=== PATIENT | male | born 1960 | race Caucasian/White ===

== ENCOUNTER → 2022-02-13 07:23 | Outpatient (CLI) | payer OTHER, SELFPAY ==
[2022-02-13 08:57] LABS: Add Manual Diff / Slide Review NO; Basophils Absolute Auto 0 /uL (0-100); Basophils Percent Auto 0.5 % (0-2); Eosinophils Absolute Auto 200 /uL (0-450); Eosinophils Percent Auto 2.9 % (2-4); Hematocrit 40.3 % (41-53); Hemoglobin 13.9 g/dL (13.5-17.5); Lymphocytes Absolute Auto 1200 /uL (1100-4500); Lymphocytes Percent Auto 14.5 % (25-40); Mean Corpuscular HGB Conc 34.5 % (30-36); Mean Corpuscular Hemoglobin 30.5 PG (26-34); Mean Corpuscular Volume 88.4 fL (80-100); Monocytes Absolute Auto 700 /uL (0-900); Monocytes Percent Auto 8.7 % (3-14); Neutrophils Absolute Auto 6300 /uL (1500-7000); Neutrophils Percent Auto 73.4 % (50-75); Platelet Count 200 X10^3/uL (150-400); Red Blood Cell Count 4.56 X10^6/uL (4.5-5.9); Red Cell Distribution Width 13.5 % (11.6-14.8); White Blood Cell Count 8.6 X10^3/uL (4.5-11.0)
[2022-02-13 09:07] LABS: Alanine Aminotransferase 42 IU/L (<50); Albumin 4.2 g/dL (3.5-5.0); Albumin Globulin Ratio 1.4 (1.0-2.8); Alkaline Phosphatase 68 U/L (38-126); Aspartate Aminotransferase 35 IU/L (17-59); BUN Creatinine Ratio 22.8 (6-22); Bilirubin Total 0.6 mg/dL (0.2-1.3); Blood Urea Nitrogen 23 mg/dL (9-20); Calcium 9.3 mg/dL (8.4-10.2); Carbon Dioxide 27 mmol/L (22-32); Chloride 103 mmol/L (98-107); Cholesterol 133 mg/dL (140-199); Estimated Glomerular Filt Rate > 60 mL/min (>60); Glucose 100 mg/dL (80-110); HDL Cholesterol 50 mg/dL (40-60); HEMOLYSIS < 15 (0-50); LDL Cholesterol Calculated 66 mg/dL (<100); Potassium 4.3 mmol/L (3.4-5.1); Sodium 138 mmol/L (137-145); Total Protein 7.2 g/dL (6.3-8.2); Triglycerides 83 mg/dL (35-150)
[2022-02-13 09:38] LABS: Prostate Specific Antigen 1.74 ng/mL (0.10-4.00)
== END ==
PROVIDERS: PCP Family Medicine; Referring Provider Family Medicine; Visit Provider Family Medicine
DX: E78.5 Hyperlipidemia, unspecified (principal); I10 Essential (primary) hypertension
CPT/HCPCS: 36415; 80053; 80061; 84153; 85025

== ENCOUNTER → 2022-03-22 09:21 | Outpatient (CLI) | payer OTHER, SELFPAY ==
[2022-03-22 12:09] LABS: COVID19 -Nasal RAPID Negative (Negative)
== END ==
PROVIDERS: PCP Family Medicine; Visit Provider Surgery
DX: Z01.812 Encounter for preprocedural laboratory examination (principal); Z20.822 Contact with and (suspected) exposure to COVID-19
CPT/HCPCS: 87635; C9803

== ENCOUNTER 2022-03-23 08:59 | Day surgery (SDC) | payer OTHER, SELFPAY ==
--- NOTE | 2022-03-23 | PATH_ITS ---
[facility] Accession Number: [id number] . 01 Material submitted: . colon - DESCENDING COLON POLYP . 01 Clinical history: . DX COLONOSCOPY HEMORRHAGE OF ANUS AND RECTUM . 01 Diagnosis: Descending Colon Polyp, Biopsy: Hyperplastic polyp. MRV 03/28/2022 1111 Local . 01 Electronically signed: . Nataliya Noriega MD, Pathologist NPI- [id number] . 01 Gross description: . DESCENDING COLON POLYP: Received in formalin are 2 fragment(s) of henry, soft tissue measuring 0.8 x 0.2 x 0.2 cm to 0.5 x 0.2 x 0.2 cm submitted entirely in 1 cassette(s) /CPE 03/25/2022 1006 Local . 01 Pathologist provided ICD-10: D12.4 . 01 CPT . 747001 Performed at: 01 [facility] [address] [place] [address] [address], [place], [place] [id number] MD Jameson Chester MD Phone: [phone]
[2022-03-23 09:20] VITALS: BP 123/79; PULSE 72; RESP 18; TEMP 36.3; O2SAT 99; BMI 34.8
[2022-03-23] MEDS: LACTATED RINGERS 1,000 ML 42 ML IV (09:33)
--- NOTE | 2022-03-23 09:57 | PM.HP.1 ---
History of Present Illness History of Present Illness Date Patient Seen: 03/23/22 Time Patient Seen: 09:57 Chief complaint: DX COLONOSCOPY Narrative: Pedro Luis is here for his colonoscopy. Please see office note from January for details. He reports he is still having occasional rectal bleeding and sometimes he has seepage of mucus from area. Patient History Medical History (Updated 02/23/22 @ 12:04 by Prakash Lundberg DO) Anemia (~2017) Chicken pox (~1966) Chronic pain of left knee Colon polyps (~2015) Foot pain (~1999) GERD (gastroesophageal reflux disease) (~2005) GI bleeding (~2018) Hemorrhoid (~2018) Hepatitis A (~1977) HTN (hypertension) (~2009) Hyperlipidemia Internal hemorrhoid, bleeding Measles (~1964) Shoulder pain (~2015) Sleep apnea (~2009) Surgical History (Updated 02/22/22 @ 21:37 by Luisa Hook) Anesthesia History of foot surgery (~1999) History of sinus surgery (~2004) Family & Social History Family History (Updated 02/22/22 @ 21:38 by Luisa Hook) Father Accident Mother Hypertension Grandfather Pneumonia Social History: household members spouse Tobacco & Substance use: Smoking Status Never smoker alcohol intake current alcohol intake frequency 0-2 drinks per day Substance Use Type does not use Meds Home Medications and Allergies Home Medications Medication Instructions Recorded Confirmed Type lisinopril 20 1 tab PO BID 12/28/21 03/23/22 History mg-hydrochlorothiazide 12.5 mg tablet omeprazole 20 mg capsule,delayed 20 mg PO DAILY 12/28/21 03/23/22 History release rosuvastatin 10 mg tablet 10 mg PO DAILY 12/28/21 03/23/22 History amlodipine 10 mg tablet 10 mg PO DAILY #90 tabs 02/23/22 03/23/22 Rx Allergies Allergy/AdvReac Type Severity Reaction Status Date / Time No Known Drug Allergies Allergy Verified 03/23/22 09:11 Exam Vital Signs (past 8 hours): - 03/23/22 09:20 Temperature 97.4 F L Pulse Rate 72 Respiratory Rate 18 Blood Pressure 123/79 Pulse Oximetry 99 Oxygen Delivery Method Room Air Oxygen Flow Rate 0 Oxygen Delivery Method Room Air Oxygen Flow Rate 0 Const General: No acute distress Assessment & Plan Assessment and plan (1) Hematochezia: Status: Acute Plan We will plan for colonoscopy. We will pay extra attention to the anal area but if no source of his symptoms were found we would be able to proceed with exam under anesthesia at a later date. Time Spent With Patient Critical Care time: I spent a total of [] minutes of critical care time on this patient's care today; this time is exclusive of procedural time.
[2022-03-23] MEDS: MIDAZOLAM 5 MG/5 ML VIAL 4 MG IV (11:04)
[2022-03-23] MEDS: fentaNYL 100 MCG/2 ML INJ 125 MCG IV (11:04)
--- NOTE | 2022-03-23 11:21 | PM.OP.COLON ---
Operative Date/Time/Diagnoses Date of procedure: 03/23/22 Time of procedure: 11:21 Pre-op diagnosis: Rectal bleeding Post-op diagnosis: same Procedure & Clinicians Study performed: Colonoscopy Same procedure as scheduled: Yes Surgeon: Linus Gonzalez Procedure Notes Procedure in detail: Surgeon: Linus Gonzalez MD Procedure: The patient was brought to the endoscopy suite, placed in left lateral decubitus position. The patient was connected to monitoring devices. A time-out was performed. Sedation was administered. Once the patient was adequately sedated, a digital rectal exam was performed and was normal. The scope was then inserted and advanced to the cecum where the appendiceal orifice was identified and photographed. The scope was then slowly withdrawn over greater than 6 minutes. The mucosa was thoroughly inspected. There was a 5 mm polyp in the descending colon removed with a cold snare. The scope was retroflexed in the rectum. There were some internal hemorrhoids. The scope was straightened and removed. The patient was awakened and brought to recovery. Versed: 4 mg Fentanyl: 125 mcg EBL: 5 mL Findings: 5 mm descending colon polyp Scope withdrawal time: 9 Sedation minutes: 15 Post-procedure Recommendations: Will call with biopsy results Disposition: PACU
[2022-03-23 11:25] VITALS: BP 146/80; PULSE 65; RESP 16; TEMP 36.3; O2SAT 96
[2022-03-23 11:30] VITALS: BP 147/90; PULSE 69; RESP 16; O2SAT 96
[2022-03-23 11:35] VITALS: BP 126/87; PULSE 59; RESP 12; O2SAT 97
[2022-03-23 11:52] VITALS: BP 138/85; PULSE 70; RESP 16; TEMP 36.8; O2SAT 99
== END 2022-03-23 12:05 | disposition home or self-care (01) ==
PROVIDERS: PCP Family Medicine; Referring Provider Surgery; Visit Provider Surgery
PROC: 0DJD8ZZ Inspection of Lower Intestinal Tract, Via Natural or Artificial Opening Endoscopic (ICD-10-PCS; CPT 45378; principal; 2022-03-23 10:00)
DX: K62.5 Hemorrhage of anus and rectum (principal); K64.8 Other hemorrhoids; K63.5 Polyp of colon
CPT/HCPCS: 45385; 99152; J2250; J3010

== ENCOUNTER → 2022-06-30 11:26 | Outpatient (CLI) | payer OTHER, SELFPAY ==
[2022-06-30 12:11] LABS: Hematocrit 40.2 % (41-53); Hemoglobin 13.7 g/dL (13.5-17.5); Mean Corpuscular HGB Conc 34.1 % (30-36); Mean Corpuscular Hemoglobin 30.3 PG (26-34); Mean Corpuscular Volume 88.9 fL (80-100); Platelet Count 230 X10^3/uL (150-400); Red Blood Cell Count 4.52 X10^6/uL (4.5-5.9); Red Cell Distribution Width 13.8 % (11.6-14.8); White Blood Cell Count 6.1 X10^3/uL (4.5-11.0)
== END ==
PROVIDERS: PCP Family Medicine; Referring Provider Family Medicine; Visit Provider Family Medicine
DX: D64.9 Anemia, unspecified (principal); K64.8 Other hemorrhoids
CPT/HCPCS: 36415; 85027

== ENCOUNTER → 2023-03-27 07:12 | Outpatient (CLI) | payer OTHER, SELFPAY ==
[2023-03-27 07:47] LABS: Add Manual Diff / Slide Review NO; Basophils Absolute Auto 0 /uL (0-100); Basophils Percent Auto 0.6 % (0-2); Eosinophils Absolute Auto 200 /uL (0-450); Eosinophils Percent Auto 2.9 % (2-4); Hematocrit 36.4 % (41-53); Hemoglobin 12.5 g/dL (13.5-17.5); Lymphocytes Absolute Auto 1200 /uL (1100-4500); Lymphocytes Percent Auto 14.8 % (25-40); Mean Corpuscular HGB Conc 34.3 % (30-36); Mean Corpuscular Hemoglobin 29.8 PG (26-34); Monocytes Absolute Auto 900 /uL (0-900); Monocytes Percent Auto 10.9 % (3-14); Neutrophils Absolute Auto 5600 /uL (1500-7000); Neutrophils Percent Auto 70.8 % (50-75); Platelet Count 225 X10^3/uL (150-400); Red Blood Cell Count 4.19 X10^6/uL (4.5-5.9); Red Cell Distribution Width 14.7 % (11.6-14.8); White Blood Cell Count 7.9 X10^3/uL (4.5-11.0)
[2023-03-27 08:05] LABS: Alanine Aminotransferase 33 IU/L (<50); Albumin 4.1 g/dL (3.5-5.0); Albumin Globulin Ratio 1.5 (1.0-2.8); Alkaline Phosphatase 74 U/L (38-126); Aspartate Aminotransferase 42 IU/L (17-59); BUN Creatinine Ratio 33.8 (6-22); Bilirubin Total 0.8 mg/dL (0.2-1.3); Blood Urea Nitrogen 26 mg/dL (9-20); Calcium 9.7 mg/dL (8.4-10.2); Carbon Dioxide 24 mmol/L (22-32); Chloride 103 mmol/L (98-107); Cholesterol 140 mg/dL (140-199); Estimated Glomerular Filt Rate > 60 mL/min (>60); Globulin 2.8 g/dL (1.7-4.1); Glucose 103 mg/dL (80-110); HDL Cholesterol 61 mg/dL (40-60); HEMOLYSIS < 15 (0-50); LDL Cholesterol Calculated 58 mg/dL (<100); Potassium 3.7 mmol/L (3.4-5.1); Sodium 138 mmol/L (137-145); Total Protein 6.9 g/dL (6.3-8.2); Triglycerides 106 mg/dL (35-150)
[2023-03-27 08:33] LABS: Prostate Specific Antigen Scrn 2.01 ng/mL (0.1-4.0)
[2023-03-27 09:07] LABS: Creatinine Urine Random 194.2 mg/dL
[2023-03-27 09:12] LABS: Microalbumi Creatinin Ratio Ur 4.6 ug/mg CR (<30); Microalbumin Urine Random 0.9 mg/dL (0-1.6)
== END ==
PROVIDERS: PCP Family Medicine; Referring Provider Family Medicine; Visit Provider Family Medicine
DX: E78.2 Mixed hyperlipidemia (principal); I10 Essential (primary) hypertension; Z13.9 Encounter for screening, unspecified; Z12.5 Encounter for screening for malignant neoplasm of prostate
CPT/HCPCS: 36415; 80053; 80061; 82043; 82570; 85025; G0103

== ENCOUNTER 2023-04-10 19:08 | Emergency (ER) | payer OTHER, SELFPAY ==
[2023-04-10 19:19] VITALS: BP 134/68; PULSE 95; RESP 22; TEMP 37.6; O2SAT 97; BMI 34.8
[2023-04-10 20:15] LABS: Influenza A - CEPHEID Flu A NEGATIVE (NEGATIVE); Influenza B - CEPHEID Flu B NEGATIVE (NEGATIVE); Respiratory Syncytial Virus Negative (Negative)
[2023-04-10 20:16] LABS: COVID-19 CEPHEID 4-PLEX PCR Negative (Negative)
== END 2023-04-10 20:15 | disposition left against medical advice (07) ==
PROVIDERS: Emergency Provider Emergency Medicine; PCP Family Medicine
DX: R05.9 Cough, unspecified (principal)
CPT/HCPCS: 0241U; 99281

== ENCOUNTER → 2024-04-07 07:21 | Outpatient (CLI) | payer OTHER, SELFPAY ==
[2024-04-07 09:19] LABS: Add Manual Diff / Slide Review NO; Basophils Absolute Auto 0 /uL (0-100); Basophils Percent Auto 0.7 % (0-2); Eosinophils Absolute Auto 200 /uL (0-450); Eosinophils Percent Auto 5.2 % (2-4); Hematocrit 39.9 % (41-53); Hemoglobin 13.6 g/dL (13.5-17.5); Lymphocytes Absolute Auto 1100 /uL (1100-4500); Lymphocytes Percent Auto 27.2 % (25-40); Mean Corpuscular HGB Conc 34.1 % (30-36); Mean Corpuscular Hemoglobin 30.5 PG (26-34); Mean Corpuscular Volume 89.5 fL (80-100); Monocytes Absolute Auto 500 /uL (0-900); Monocytes Percent Auto 11.6 % (3-14); Neutrophils Absolute Auto 2300 /uL (1500-7000); Neutrophils Percent Auto 55.3 % (50-75); Platelet Count 198 X10^3/uL (150-400); Red Blood Cell Count 4.46 X10^6/uL (4.5-5.9); Red Cell Distribution Width 13.6 % (11.6-14.8); White Blood Cell Count 4.1 X10^3/uL (4.5-11.0)
[2024-04-07 09:52] LABS: Alanine Aminotransferase 30 IU/L (<50); Albumin 4.3 g/dL (3.5-5.0); Albumin Globulin Ratio 1.7 (1.0-2.8); Alkaline Phosphatase 57 U/L (38-126); Aspartate Aminotransferase 31 IU/L (17-59); BUN Creatinine Ratio 22.4 (6-22); Bilirubin Total 0.5 mg/dL (0.2-1.3); Blood Urea Nitrogen 19 mg/dL (9-20); Calcium 9.8 mg/dL (8.4-10.2); Carbon Dioxide 28 mmol/L (22-32); Chloride 104 mmol/L (98-107); Cholesterol 128 mg/dL (140-199); Estimated Glomerular Filt Rate > 60 mL/min (>60); Globulin 2.6 g/dL (1.7-4.1); Glucose 98 mg/dL (80-110); HDL Cholesterol 65 mg/dL (40-60); HEMOLYSIS < 15 (0-50); LDL Cholesterol Calculated 46 mg/dL (<100); Potassium 4.5 mmol/L (3.4-5.1); Sodium 140 mmol/L (137-145); Total Protein 6.9 g/dL (6.3-8.2); Triglycerides 85 mg/dL (35-150)
[2024-04-07 10:16] LABS: Prostate Specific Antigen Scrn 2.02 ng/mL (0.1-4.0)
== END ==
PROVIDERS: PCP Family Medicine; Referring Provider Family Medicine; Visit Provider Family Medicine
DX: D64.9 Anemia, unspecified (principal); I10 Essential (primary) hypertension; E78.5 Hyperlipidemia, unspecified; Z12.5 Encounter for screening for malignant neoplasm of prostate; Z68.35 Body mass index [BMI] 35.0-35.9, adult
CPT/HCPCS: 36415; 80053; 80061; 85025; G0103

== ENCOUNTER → 2024-08-26 13:51 | Outpatient (CLI) | payer OTHER, SELFPAY ==
--- NOTE | 2024-08-26 13:53 | DI.RAD.S_ITS ---
PROCEDURE: XR FOOT LT MIN 3V INDICATIONS: Left foot pain TECHNIQUE: 3 views of the foot were acquired. COMPARISON: None. FINDINGS AND IMPRESSION: No acute displaced fracture or dislocation. 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 Plantar and calcaneal enthesopathy also seen. Nonacute appearing periosteal thickening or exostosis from the medial 2nd metatarsal. No suspicious soft tissue calcifications. If there is high concern for further derangement, consider MRI evaluation. Dictated by: Marcelo Hernandez M.D. on 08/26/2024 at 14:16 Approved by: Marcelo Hernandez M.D. on 08/26/2024 at 14:18
== END ==
PROVIDERS: PCP Family Medicine; Referring Provider Physician Assistant Surgical; Visit Provider Physician Assistant Surgical
DX: M19.072 Primary osteoarthritis, left ankle and foot (principal); M79.672 Pain in left foot; M77.32 Calcaneal spur, left foot
CPT/HCPCS: 73630

== ENCOUNTER → 2025-04-15 09:00 | Outpatient (CLI) | payer OTHER, SELFPAY ==
[2025-04-15 09:56] LABS: Add Manual Diff / Slide Review NO; Hematocrit 42.1 % (41-53); Hemoglobin 13.9 g/dL (13.5-17.5); Lymphocytes Absolute Auto 1000 /uL (1100-4500); Mean Corpuscular HGB Conc 33.0 % (30-36); Mean Corpuscular Hemoglobin 29.7 PG (26-34); Mean Corpuscular Volume 89.9 fL (80-100); Platelet Count 177 X10^3/uL (150-400)
[2025-04-15 10:05] LABS: Alanine Aminotransferase 603 IU/L (<50); Albumin 4.5 g/dL (3.5-5.0); Albumin Globulin Ratio 1.5 (1.0-2.8); Alkaline Phosphatase 249 U/L (38-126); Blood Urea Nitrogen 19 mg/dL (9-20); Calcium 9.9 mg/dL (8.4-10.2); Carbon Dioxide 29 mmol/L (22-32); Chloride 102 mmol/L (98-107); Cholesterol 166 mg/dL (140-199); Estimated Glomerular Filt Rate > 60 mL/min (>60); Globulin 3.1 g/dL (1.7-4.1); Glucose 112 mg/dL (70-99); HDL Cholesterol 73 mg/dL (40-60); HEMOLYSIS < 15 (0-50); Potassium 4.4 mmol/L (3.4-5.1); Sodium 141 mmol/L (137-145); Total Protein 7.6 g/dL (6.3-8.2); Triglycerides 135 mg/dL (35-150)
[2025-04-15 11:16] LABS: Appearance Urine UA CLEAR; Bilirubin Urine UA 1+ (NEGATIVE); Color Urine UA YELLOW; Glucose Urine UA NEGATIVE (Negative); Ketones Urine UA NEGATIVE (NEGATIVE); Leukocyte Esterase Urine UA NEGATIVE (NEGATIVE); Nitrite Urine UA NEGATIVE (Negative); Occult Blood Urine UA NEGATIVE (Negative); Protein Urine UA NEGATIVE (Negative); Specific Gravity Urine UA 1.020 (1.000-1.035); Urobilinogen Urine UA 1.0 E.U./dL (0.2); pH Urine UA 6.0 (4.5-8.0)
[2025-04-15 11:33] LABS: Ictotest Urine Negative (Negative)
[2025-04-15 11:34] LABS: Culture Indicated Urine Cult Not Indicated
[2025-04-15 14:54] LABS: Uric Acid 8.7 mg/dL (3.5-8.5)
== END ==
PROVIDERS: Physician Assistant; PCP Family Medicine; Referring Provider Family Medicine; Visit Provider Family Medicine
DX: Z12.5 Encounter for screening for malignant neoplasm of prostate (principal); K64.8 Other hemorrhoids; E78.5 Hyperlipidemia, unspecified; I10 Essential (primary) hypertension; D64.9 Anemia, unspecified; R31.9 Hematuria, unspecified; Z68.35 Body mass index [BMI] 35.0-35.9, adult; M10.9 Gout, unspecified
CPT/HCPCS: 36415; 80053; 80061; 81001; 84550; 85025; G0103

== ENCOUNTER 2025-04-16 10:45 | Emergency (ER) | payer OTHER, SELFPAY ==
[2025-04-16] VITALS (17 sets, daily range): BP systolic 122–155; BP diastolic 68–85; PULSE 70–102; RESP 16–18; TEMP 36.6–36.8; O2SAT 91–97; BMI 34.8
--- NOTE | 2025-04-16 11:19 | ED.ABDPAIN ---
HPI - Abdominal Pain <Asim Huitron DO - Last Filed: 04/17/25 13:11> General Chief Complaint: Abdominal Pain Stated Complaint: severe upper stomach pain Time Seen by Provider: 04/16/25 10:50 Source: patient Mode of arrival: Ambulatory History of Present Illness HPI narrative: 65-year-old male history of hypertension, dyslipidemia, GERD, costochondritis, seen most recently on 04/11/2025 presents with with epigastric pain, nausea, nonbilious, nonbloody vomiting, for which last drink was 5 days ago. Patient was seen in the ER on 04/11/2025 for similar complaint. He has passed gas and had a bowel movement earlier today. He denies trauma, chest pain, shortness breath, cough, back pain, with dysuria, fever, chills, body aches. Other than what is stated 14 point review of system is negative. Related Data Home Medications ?Medication ?Instructions ?Recorded ?Confirmed ascorbate calcium (vitamin C) 500 250 mg PO DAILY 04/13/23 04/15/25 mg tablet cholecalciferol (vitamin D3) 50 50 mcg PO DAILY 04/13/23 04/15/25 mcg (2,000 unit) capsule iron 100 mg PO DAILY 04/13/23 04/15/25 Previous Rx's ?Medication ?Instructions ?Recorded diclofenac sodium 100 mg 100 mg PO DAILY PRN 08/26/24 tablet,extended release 24 hr Inflammation/pain for gout #20 tabs omeprazole 20 mg capsule,delayed 20 mg PO DAILY #90 caps 11/28/24 release rosuvastatin 10 mg tablet 10 mg PO DAILY #90 tabs 11/28/24 amlodipine 10 mg tablet 10 mg PO DAILY #90 tabs 01/20/25 lisinopril 20 1 tab PO BID #180 tabs 01/20/25 mg-hydrochlorothiazide 12.5 mg tablet colchicine 0.6 mg tablet 0.6 mg PO DAILY #20 tabs 04/15/25 Allergies Allergy/AdvReac Type Severity Reaction Status Date / Time No Known Drug Allergies Allergy Verified 04/15/25 14:34 Review of Systems <DO Noemí Morales C.H. 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 Acute costochondritis BMI 35.0-35.9,adult Sleep apnea (~2009) Shoulder pain (~2015) Foot pain (~1999) Measles (~1964) Hepatitis A (~1977) Chicken pox (~1966) Anemia (~2017) GI bleeding (~2018) GERD (gastroesophageal reflux disease) (~2005) Colon polyps (~2015) Chronic pain of left knee HTN (hypertension) (~2009) Hyperlipidemia Internal hemorrhoid, bleeding Surgical History Anesthesia History of foot surgery (~1999) History of sinus surgery (~2004) Family History Father Accident Mother Hypertension Grandfather Pneumonia Social History household members: spouse Smoking Status: Never smoker alcohol intake: current Smoking Status: Never smoker alcohol intake frequency: 0-2 drinks per day Exam <Asim Huitron DO - Last Filed: 04/17/25 13:11> Narrative Exam Narrative: GENERAL: [65] year old patient appears stated age. Well-developed patient, in mild distress. HEAD: Atraumatic. Normocephalic. EYES: Pupils equal round and reactive. Extraocular motions intact. No scleral icterus. No injection or drainage. ENT: Nose without bleeding, purulent drainage. Throat without erythema, tonsillar hypertrophy or exudate. Airway patent. NECK: Trachea midline. Non tender CARDIOVASCULAR: Regular rate and rhythm without murmurs, gallops, or rubs. RESPIRATORY: Clear to auscultation. Breath sounds equal bilaterally. No wheezes, rales, or rhonchi. GASTROINTESTINAL: Abdomen soft, epigastric no rebound rigidity guarding nondistended. EXTREMITIES: No edema or joint tenderness. BACK: Nontender without deformity or crepitance. No flank tenderness. NEURO: AOx3. SKIN: No rash or erythema of visible areas Initial Vital Signs Initial Vital Signs: Vital Signs Temperature 98.2 F 04/16/25 10:53 Pulse Rate 70 10/16/25 10:53 Respiratory Rate 18 04/16/25 10:53 Blood Pressure 136/70 04/16/25 10:53 Pulse Oximetry 97 04/16/25 10:53 Oxygen Delivery Method Room Air 04/16/25 10:53 <Joanne Robles, DO - Last Filed: 04/17/25 05:53> Initial Vital Signs Initial Vital Signs: Vital Signs Temperature 98.2 F 04/16/25 10:53 Pulse Rate 70 04/16/25 10:53 Respiratory Rate 18 04/16/25 10:53 Blood Pressure 136/70 04/16/25 10:53 Pulse Oximetry 97 04/16/25 10:53 Oxygen Delivery Method Room Air 04/16/25 10:53 Course <Asim Huitron, DO - Last Filed: 04/17/25 13:11> Orders Ordered: Discontinued Medications Al Hydrox/Mg Hydrox/Simethicone 30 ml/ Lidocaine HCl 15 ml 0 ml PO NOW ONE Stop: 04/16/25 11:32 Last Admin: 04/16/25 11:39 Dose: 45 ml Documented By: JORDY Hydromorphone HCl (Hydromorphone 1 Mg/Ml Syringe) 1 mg IV NOW ONE Stop: 04/16/25 19:21 Last Admin: 04/16/25 19:40 Dose: 1 mg Documented By: IKE Lactated Ringer's (Lactated Ringers) 1,000 mls @ 1,000 mls/hr IV BOLUS ONE Stop: 04/16/25 12:30 Last Infusion: 04/16/25 12:56 Dose: Infused Documented By: Admin: 04/16/25 11:39 Dose: 1,000 mls/hr Documented By: JORDY Piperacillin Sod/Tazobactam (Sod 4.5 gm/ Sodium Chloride) 100 mls @ 200 mls/hr IV NOW ONE Stop: 04/16/25 19:22 Last Infusion: 04/16/25 20:31 Dose: Infused Documented By: Admin: 04/16/25 19:40 Dose: 200 mls/hr Documented By: IKE Ketorolac Tromethamine (Ketorolac 30 Mg/Ml Vial) 15 mg IV NOW ONE Stop: 04/16/25 11:32 Last Admin: 04/16/25 11:38 Dose: 15 mg Documented By: JORDY Morphine Sulfate (Morphine 4 Mg/Ml Inj) 4 mg IV NOW ONE Stop: 04/16/25 13:07 Last Admin: 04/16/25 13:34 Dose: 4 mg Documented By: PASHA Ondansetron HCl (Ondansetron 4 Mg/2 Ml Inj) 4 mg IV NOW PRN PRN Reason: Nausea And Vomiting Last Admin: 04/16/25 11:38 Dose: 4 mg Documented By: JORDY Ondansetron HCl (Ondansetron 4 Mg Odt) 4 mg PO NOW PRN PRN Reason: Nausea And Vomiting Vital Signs Vital signs: Vital Signs - 8 hr 04/16/25 13:39 04/16/25 13:40 04/16/25 13:40 Temperature Pulse Rate 90 93 H Respiratory Rate Blood Pressure 141/85 H Pulse Oximetry 94 95 Oxygen Delivery Method 04/16/25 14:00 04/16/25 14:00 04/16/25 15:31 Temperature Pulse Rate 87 102 H Respiratory Rate Blood Pressure 145/79 H Pulse Oximetry 92 94 Oxygen Delivery Method 04/16/25 15:32 04/16/25 15:32 04/16/25 16:31 Temperature Pulse Rate 100 H 94 H Respiratory Rate 18 Blood Pressure 155/82 H Pulse Oximetry 95 94 Oxygen Delivery Method 04/16/25 16:32 04/16/25 16:32 04/16/25 17:00 Temperature Pulse Rate 95 H Respiratory Rate 16 Blood Pressure 131/74 132/70 Pulse Oximetry 95 Oxygen Delivery Method 04/16/25 17:00 04/16/25 17:30 04/16/25 17:30 Temperature Pulse Rate 91 H 92 H Respiratory Rate Blood Pressure 124/76 Pulse Oximetry 92 95 Oxygen Delivery Method 04/16/25 18:00 04/16/25 18:00 04/16/25 18:30 Temperature Pulse Rate 90 93 H Respiratory Rate Blood Pressure 128/74 Pulse Oximetry 93 91 Oxygen Delivery Method 04/16/25 18:30 04/16/25 19:52 Temperature 98 F Pulse Rate 98 H Respiratory Rate 16 Blood Pressure 128/69 129/79 Pulse Oximetry 92 Oxygen Delivery Method Room Air <Joanne Robles, - Last Filed: 04/17/25 05:53> Orders Ordered: Discontinued Medications Al Hydrox/Mg Hydrox/Simethicone 30 ml/ Lidocaine HCl 15 ml 0 ml PO NOW ONE Stop: 04/16/25 11:32 Last Admin: 04/16/25 11:39 Dose: 45 ml Documented By: JORDY Hydromorphone HCl (Hydromorphone 1 Mg/Ml Syringe) 1 mg IV NOW ONE Stop: 04/16/25 19:21 Last Admin: 04/16/25 19:40 Dose: 1 mg Documented By: IKE Lactated Ringer's (Lactated Ringers) 1,000 mls @ 1,000 mls/hr IV BOLUS ONE Stop: 04/16/25 12:30 Last Infusion: 04/16/25 12:56 Dose: Infused Documented By: Admin: 04/16/25 11:39 Dose: 1,000 mls/hr Documented By: JORDY Piperacillin Sod/Tazobactam (Sod 4.5 gm/ Sodium Chloride) 100 mls @ 200 mls/hr IV NOW ONE Stop: 04/16/25 19:22 Last Infusion: 04/16/25 20:31 Dose: Infused Documented By: Admin: 04/16/25 19:40 Dose: 200 mls/hr Documented By: IKE Ketorolac Tromethamine (Ketorolac 30 Mg/Ml Vial) 15 mg IV NOW ONE Stop: 04/16/25 11:32 Last Admin: 04/16/25 11:38 Dose: 15 mg Documented By: JORDY Morphine Sulfate (Morphine 4 Mg/Ml Inj) 4 mg IV NOW ONE Stop: 04/16/25 13:07 Last Admin: 04/16/25 13:34 Dose: 4 mg Documented By: PASHA Ondansetron HCl (Ondansetron 4 Mg/2 Ml Inj) 4 mg IV NOW PRN PRN Reason: Nausea And Vomiting Last Admin: 04/16/25 11:38 Dose: 4 mg Documented By: JORDY Ondansetron HCl (Ondansetron 4 Mg Odt) 4 mg PO NOW PRN PRN Reason: Nausea And Vomiting Vital Signs Vital signs: Vital Signs - 8 hr 04/16/25 13:39 04/16/25 13:40 04/16/25 13:40 Temperature Pulse Rate 90 93 H Respiratory Rate Blood Pressure 141/85 H Pulse Oximetry 94 95 Oxygen Delivery Method 04/16/25 14:00 04/16/25 14:00 04/16/25 15:31 Temperature Pulse Rate 87 102 H Respiratory Rate Blood Pressure 145/79 H Pulse Oximetry 92 94 Oxygen Delivery Method 04/16/25 15:32 04/16/25 15:32 04/16/25 16:31 Temperature Pulse Rate 100 H 94 H Respiratory Rate 18 Blood Pressure 155/82 H Pulse Oximetry 95 94 Oxygen Delivery Method 04/16/25 16:32 04/16/25 16:32 04/16/25 17:00 Temperature Pulse Rate 95 H Respiratory Rate 16 Blood Pressure 131/74 132/70 Pulse Oximetry 95 Oxygen Delivery Method 04/16/25 17:00 04/16/25 17:30 04/16/25 17:30 Temperature Pulse Rate 91 H 92 H Respiratory Rate Blood Pressure 124/76 Pulse Oximetry 92 95 Oxygen Delivery Method 04/16/25 18:00 04/16/25 18:00 04/16/25 18:30 Temperature Pulse Rate 90 93 H Respiratory Rate Blood Pressure 128/74 Pulse Oximetry 93 91 Oxygen Delivery Method 04/16/25 18:30 04/16/25 19:52 Temperature 98 F Pulse Rate 98 H Respiratory Rate 16 Blood Pressure 128/69 129/79 Pulse Oximetry 92 Oxygen Delivery Method Room Air MDM - Abdominal Pain <Asim Huitron, DO - Last Filed: 04/17/25 13:11> Lab Data 04/16/25 11:21 04/16/25 11:21 Labs: Lab Results 04/16/25 04/16/25 Range/Units 11:21 14:26 WBC 10.6 D (4.5-11.0) X10^3/uL RBC 4.52 (4.5-5.9) X10^6/uL Hgb 13.6 (13.5-17.5) g/dL Hct 40.4 L (41-53) % MCV 89.5 (80-100) fL MCH 30.2 (26-34) PG MCHC 33.7 (30-36) % RDW 14.0 (11.6-14.8) % Plt Count 167 (150-400) X10^3/uL Neut % (Auto) 89.7 H D (50-75) % Lymph % (Auto) 4.0 L D (25-40) % [place] % (Auto) 4.5 (3-14) % Eos % (Auto) 0.2 L (2-4) % Baso % (Auto) 1.6 (0-2) % Neut # (Auto) 9500 H (7711-5206) /uL Lymph # (Auto) 400 L (3174-9857) /uL [place] # (Auto) 500 (0-900) /uL Eos # (Auto) 0 (0-450) /uL Baso # (Auto) 200 H (0-100) /uL Sodium 139 (137-145) mmol/L Potassium 3.8 (3.4-5.1) mmol/L Chloride 101 (98-107) mmol/L Carbon Dioxide 28 (22-32) mmol/L BUN 22 H (9-20) mg/dL Creatinine 0.86 (0.66-1.25) mg/dL Estimated GFR > 60 (>60) mL/min BUN/Creatinine Ratio 25.6 H (6-22) Glucose 136 H (70-99) mg/dL Calcium 9.6 (8.4-10.2) mg/dL Total Bilirubin 2.8 H (0.2-1.3) mg/dL AST 643 H (17-59) IU/L ALT 669 H (<50) IU/L Alkaline Phosphatase 310 H (38-126) U/L Troponin I < 0.012 (0.01-0.034) ng/mL Total Protein 8.2 (6.3-8.2) g/dL Albumin 4.6 (3.5-5.0) g/dL Globulin 3.6 (1.7-4.1) g/dL Albumin/Globulin Ratio 1.3 (1.0-2.8) Lipase 271 (23-300) U/L Ur Bilirubin Confirm Positive H (Negative) Urine RBC None seen (0-5/HPF) Urine WBC 5-10/hpf H (0-5/HPF) Ur Squamous Epith Cells 0-1 /hpf (0-5/HPF) Amorphous Sediment 2+ Urine Bacteria Few (2-10) H (None) Ur Culture Indicated? Specimen cultured Vol Urine Centrifuged 10ml (spun) Point of care testing: Urine Dip Bedside Urine Glucose Negative Bedside Urine Bilirubin + 1 Bedside Urine Ketone - Negative Urine Specific [place] 1.020 Bedside Urine Occult Blood - Negative Bedside Urine pH 6.0 Bedside Urine Protein +/- 15 Bedside Urine Urobilinogen 1+ 2mg Bedside Urine Nitrite - Negative Bedside Urine Leukocytes +/- 15 Esterase Imaging Data US - abdomen: Radiologist's Impression: [address] [address] Ultrasound Report Signed Patient: Pedro Luis Galvez MR#: [id number] : 1960 Acct:[id number] Age/Sex: 65 / M Date of Service: 04/16/25 Loc: ED Accession Number: [id number] Procedure: US abdomen limited Ordering Provider: Asim Huitron D.O. PROCEDURE: US ABDOMEN LIMITED INDICATIONS: abd epigastric elevated bili TECHNIQUE: Real-time focused scanning was performed of the abdomen, with image documentation. COMPARISON: [facility], CT, CT ABDOMEN PELVIS WO CON, 04/16/2025, 12:05. FINDINGS: No gallstones or sonographic Wiley sign. Increased hepatic echogenicity. Liver measures 19 cm. CBD measures 10 mm. Unremarkable sonographic appearance of the pancreas IMPRESSION: Distended CBD, correlate LFT pattern and possible ERCP or MRCP. No gallbladder stones or sonographic Wiley sign. Hepatomegaly and increased hepatic echotexture, nonspecific, most commonly steatosis Dictated by: Marcelo Hernandez M.D. on 04/16/2025 at 13:08 Approved by: Marcelo Hernandez M.D. on 04/16/2025 at 13:10 Extremity x-ray #1: Radiologist's Impression: [address] [address] Magnetic Resonance Report Signed Patient: Pedro Luis Galvez MR#: [id number] : 1960 Acct:[id number] Age/Sex: 65 / M Date of Service: 04/16/25 Loc: ED Accession Number: [id number] Procedure: MR abdomen wo con Ordering Provider: Asim Huitron D.O. PROCEDURE: MR ABDOMEN WO CON INDICATIONS: abd pain dilated cbd TECHNIQUE: Coronal HASTE through the abdomen, axial 2-D FLASH in- and [id number], and breath-hold T2 FSE with fat saturation through the biliary system and pancreas. Oblique coronal and axial thin-slice HASTE, radial thick-slab HASTE centered on the extrahepatic bile ducts. Intravenous secretin: Not requested. COMPARISON: [facility], CT, CT ABDOMEN PELVIS WO CON, 04/16/2025, 12:05. [facility] , US ABDOMEN LIMITED, 04/16/2025, 12:45. FINDINGS: Image quality: Tuey-lo-keufppiz motion artifact Lower chest: Mild lower lung opacities, better assessed on CT. Hiatal hernia partially seen Liver: Unremarkable Gallbladder and biliary system: Choledocholithiasis, with CBD measuring up to 1.2 cm. Stones are best seen on series 15. Partially seen distended gallbladder. Pancreas: No ductal dilation Spleen: Multiple small cysts. Adrenals: No discrete nodules Kidneys: Left parapelvic cysts. Vessels and lymph nodes: No enlarged lymph nodes by size criteria. No abdominal aortic aneurysm Bowel and peritoneum: No bowel obstruction. Colonic diverticula. No drainable ascites or abscess Body wall: Unremarkable Bones: No aggressive appearing osseous abnormality. Degenerative changes. IMPRESSION: Dilated CBD and choledocholithiasis. Distended gallbladder also present. MDM Narrative Medical decision making narrative: All lab work, vital signs, nurse triage note, medication list, previous ER visits, and all imaging studies reviewed. WBC 10.6 open 13.6 platelet 167 sodium 139 potassium 3.8 chloride 101 CO2 28 BUN 22 creatinine 0.86 glucose 136 T bili 2.8 AST 643 ALT 669 alk-phos 310 troponin less than 0.[address] scan showed ylrz-sn-ihhnadgv hiatal hernia no small-bowel obstruction distended gallbladder. No radiopaque stones by CT. Bibasilar pulmonary opacities and atelectasis possibly infectious inflammatory. Ultrasound showed distended CBD. MRCP - shows choledocholithiasis dilated CBP and distended gallbladder. Case discussed with Dr. Gonzalez who recommended call hospital with ERCP capabilities. Patient is signed out to Dr. Robles at shift change pending final disposition <Joanne Robles, - Last Filed: 04/17/25 05:53> Lab Data Labs: Lab Results 04/16/25 04/16/25 Range/Units 11:21 14:26 WBC 10.6 D (4.5-11.0) X10^3/uL RBC 4.52 (4.5-5.9) X10^6/uL Hgb 13.6 (13.5-17.5) g/dL Hct 40.4 L (41-53) % MCV 89.5 (80-100) fL MCH 30.2 (26-34) PG MCHC 33.7 (30-36) % RDW 14.0 (11.6-14.8) % Plt Count 167 (150-400) X10^3/uL Neut % (Auto) 89.7 H D (50-75) % Lymph % (Auto) 4.0 L D (25-40) % [place] % (Auto) 4.5 (3-14) % Eos % (Auto) 0.2 L (2-4) % Baso % (Auto) 1.6 (0-2) % Neut # (Auto) 9500 H (2135-5907) /uL Lymph # (Auto) 400 L (1130-1049) /uL [place] # (Auto) 500 (0-900) /uL Eos # (Auto) 0 (0-450) /uL Baso # (Auto) 200 H (0-100) /uL Sodium 139 (137-145) mmol/L Potassium 3.8 (3.4-5.1) mmol/L Chloride 101 (98-107) mmol/L Carbon Dioxide 28 (22-32) mmol/L BUN 22 H (9-20) mg/dL Creatinine 0.86 (0.66-1.25) mg/dL Estimated GFR > 60 (>60) mL/min BUN/Creatinine Ratio 25.6 H (6-22) Glucose 136 H (70-99) mg/dL Calcium 9.6 (8.4-10.2) mg/dL Total Bilirubin 2.8 H (0.2-1.3) mg/dL AST 643 H (17-59) IU/L ALT 669 H (<50) IU/L Alkaline Phosphatase 310 H (38-126) U/L Troponin I < 0.012 (0.01-0.034) ng/mL Total Protein 8.2 (6.3-8.2) g/dL Albumin 4.6 (3.5-5.0) g/dL Globulin 3.6 (1.7-4.1) g/dL Albumin/Globulin Ratio 1.3 (1.0-2.8) Lipase 271 (23-300) U/L Ur Bilirubin Confirm Positive H (Negative) Urine RBC None seen (0-5/HPF) Urine WBC 5-10/hpf H (0-5/HPF) Ur Squamous Epith Cells 0-1 /hpf (0-5/HPF) Amorphous Sediment 2+ Urine Bacteria Few (2-10) H (None) Ur Culture Indicated? Specimen cultured Vol Urine Centrifuged 10ml (spun) Point of care testing: Urine Dip Bedside Urine Glucose Negative Bedside Urine Bilirubin + 1 Bedside Urine Ketone - Negative Urine Specific [place] 1.020 Bedside Urine Occult Blood - Negative Bedside Urine pH 6.0 Bedside Urine Protein +/- 15 Bedside Urine Urobilinogen 1+ 2mg Bedside Urine Nitrite - Negative Bedside Urine Leukocytes +/- 15 Esterase MDM Narrative Medical decision making narrative: All lab work, vital signs, nurse triage note, medication list, previous ER visits, and all imaging studies reviewed. WBC 10.6 open 13.6 platelet 167 sodium 139 potassium 3.8 chloride 101 CO2 28 BUN 22 creatinine 0.86 glucose 136 T bili 2.8 AST 643 ALT 669 alk-phos 310 troponin less than 0.[address] scan showed aaff-im-nfwniqgu hiatal hernia no small-bowel obstruction distended gallbladder. No radiopaque stones by CT. Bibasilar pulmonary opacities and atelectasis possibly infectious inflammatory. Ultrasound showed distended CBD. MRCP - shows choledocholithiasis dilated CBP and distended gallbladder. Case discussed with Dr. Gonzalez who recommended call hospital with ERCP capabilities. Patient is signed out to Dr. Robles at shift change pending final disposition. 04/16/2025 patient signed out to myself by Dr. Huitron. Patient has a known choledocholithiasis I has had ultrasound, CT and MRCP, labs show elevated bilirubin as well as AST ALT and alk-phos, no pancreatitis. Patient has not appeared septic but did receive a dose of IV antibiotics along with the fluids and pain medications. Spoke with Dr. Oliver, hospitalist at [facility] who accepts for transfer. Discharge Plan Departure Patient Disposition: [facility] Clinical Impression: Choledocholithiasis Prescriptions: No Action diclofenac sodium 100 mg tablet extended release 24 hr 100 mg PO DAILY PRN (Reason: Inflammation/pain for gout) Qty: 20 0RF Rx Instructions: Do not exceed taking 2 weeks. Do not take any other anti-inflammatories while taking. omeprazole 20 mg capsule,delayed release(DR/EC) 20 mg PO DAILY Qty: 90 2RF rosuvastatin 10 mg tablet 10 mg PO DAILY Qty: 90 2RF amlodipine 10 mg tablet 10 mg PO DAILY Qty: 90 2RF lisinopril-hydrochlorothiazide 20-12.5 mg tablet 1 tab PO BID Qty: 180 2RF iron 100 mg PO DAILY ascorbate calcium (vitamin C) 500 mg tablet 250 mg PO DAILY cholecalciferol (vitamin D3) 50 mcg (2,000 unit) capsule 50 mcg PO DAILY colchicine 0.6 mg tablet 0.6 mg PO DAILY Qty: 20 0RF Rx Instructions: 1.2 mg today, followed by 0.6 mg after 1 hour today. Then on day 2, take 1-2 per day until resolution Referrals: Prakash Lundberg DO [Primary Care Provider, Family Practice]
--- NOTE | 2025-04-16 11:34 | DI.CT.S_ITS ---
PROCEDURE: CT ABDOMEN PELVIS WO CON INDICATIONS: epigastric pain TECHNIQUE: CT of the abdomen and pelvis was obtained without intravenous contrast. Coronal and sagittal reformats were performed. For radiation dose reduction, the following was used: automated exposure control, adjustment of mA and/or kV according to patient size. COMPARISON: [facility], CT, CT ABDOMEN PELVIS W CON, 04/11/2025, 11:10. FINDINGS: Image quality: Diagnostic Lower chest: Bibasilar opacities and atelectasis. No pleural effusions. Normal heart size. Lvka-vc-invltbxe hiatal hernia. Liver: No contour deforming mass. Solid organs are not well assessed without IV contrast. Possible small cyst at the inferior tip. possible hepatic steatosis Gallbladder and biliary system: Gallbladder appears distended. No radiopaque gallstones. No biliary ductal dilation Pancreas: No ductal dilation Spleen: Nonenlarged Adrenals: No discrete nodules Kidneys: No contour deforming mass. No hydronephrosis. Vessels and lymph nodes: No abdominal aortic aneurysm. Mild aortoiliac atherosclerotic calcifications. There are no enlarged lymph nodes by size criteria. Bowel and peritoneum: No evidence of small bowel obstruction. No drainable abscess or ascites. Colonic diverticula are seen. Appendix is nondilated. Body wall: Small fat containing periumbilical hernia. Small fat containing left inguinal hernia. Pelvis: Bladder appears under distended. Prostate is unremarkable on limited non-contrast CT evaluation Bones: No aggressive appearing osseous abnormality. There are degenerative osseous changes. IMPRESSION: Eisz-dg-yucstlio hiatal hernia. No small bowel obstruction. Distended gallbladder. No radiopaque stones by CT. Consider ultrasound correlation. Bibasilar pulmonary opacities and atelectasis possibly infectious/inflammatory. Consider future imaging surveillance to assess for resolution. Other findings above. Dictated by: Marcelo Hernandez M.D. on 04/16/2025 at 12:16 Approved by: Marcelo Hernandez M.D. on 04/16/2025 at 12:19
[2025-04-16] MEDS: ONDANSETRON 4 MG/2 ML INJ IV (11:38)
[2025-04-16] MEDS: KETOROLAC 30 MG/ML VIAL 15 MG IV (11:38)
[2025-04-16 11:39] LABS: Add Manual Diff / Slide Review NO; Hematocrit 40.4 % (41-53); Hemoglobin 13.6 g/dL (13.5-17.5); Lymphocytes Absolute Auto 400 /uL (1100-4500); Mean Corpuscular HGB Conc 33.7 % (30-36); Mean Corpuscular Hemoglobin 30.2 PG (26-34); Mean Corpuscular Volume 89.5 fL (80-100); Platelet Count 167 X10^3/uL (150-400)
[2025-04-16] MEDS: LACTATED RINGERS 1,000 ML 1000 ML IV (11:39)
[2025-04-16] MEDS: MAG HYDROX/ALUMINUM/SIMETH SUS 30 ML, LIDOCAINE VISCOUS 2% 15 ML PO (11:39)
[2025-04-16 11:44] LABS: Alanine Aminotransferase 669 IU/L (<50); Albumin 4.6 g/dL (3.5-5.0); Albumin Globulin Ratio 1.3 (1.0-2.8); Alkaline Phosphatase 310 U/L (38-126); Blood Urea Nitrogen 22 mg/dL (9-20); Calcium 9.6 mg/dL (8.4-10.2); Carbon Dioxide 28 mmol/L (22-32); Chloride 101 mmol/L (98-107); Estimated Glomerular Filt Rate > 60 mL/min (>60); Globulin 3.6 g/dL (1.7-4.1); Glucose 136 mg/dL (70-99); HEMOLYSIS < 15 (0-50); Lipase 271 U/L (23-300); Potassium 3.8 mmol/L (3.4-5.1); Sodium 139 mmol/L (137-145); Total Protein 8.2 g/dL (6.3-8.2)
--- NOTE | 2025-04-16 11:55 | DI.US.S_ITS ---
PROCEDURE: US ABDOMEN LIMITED INDICATIONS: abd epigastric elevated bili TECHNIQUE: Real-time focused scanning was performed of the abdomen, with image documentation. COMPARISON: [facility], CT, CT ABDOMEN PELVIS WO CON, 04/16/2025, 12:05. FINDINGS: No gallstones or sonographic Wiley sign. Increased hepatic echogenicity. Liver measures 19 cm. CBD measures 10 mm. Unremarkable sonographic appearance of the pancreas IMPRESSION: Distended CBD, correlate LFT pattern and possible ERCP or MRCP. No gallbladder stones or sonographic Wiley sign. Hepatomegaly and increased hepatic echotexture, nonspecific, most commonly steatosis Dictated by: Marcelo Hernandez M.D. on 04/16/2025 at 13:08 Approved by: Marcelo Hernandez M.D. on 04/16/2025 at 13:10
--- NOTE | 2025-04-16 11:56 | EKG_ITS ---
[address] [address] Test Date: 2025-04-16 Pat Name: Pedro Luis Galvez Department: [facility] Room: Gender: Male [employer] Outreach Specialist: : 1960 Requested By: Order Number: [id number] Reading MD: Asim Burdick MD Measurements Intervals Jeddo Rate: 77 P: 52 IN: 168 QRS: 9 QRSD: 82 T: 36 QT: 376 QTc: 425 Interpretive Statements Normal sinus rhythm with sinus arrhythmia Electronically Signed On 04-16-2025 12:00:53 PDT by Asim Burdick MD
[2025-04-16 11:57] LABS: Troponin I < 0.012 ng/mL (0.01-0.034)
[2025-04-16] MEDS: MORPHINE 4 MG/ML INJ IV (13:34)
--- NOTE | 2025-04-16 14:09 | DI.MRI.S_ITS ---
PROCEDURE: MR ABDOMEN WO CON INDICATIONS: abd pain dilated cbd TECHNIQUE: Coronal HASTE through the abdomen, axial 2-D FLASH in- and sih-sw-wxule, and breath-hold T2 FSE with fat saturation through the biliary system and pancreas. Oblique coronal and axial thin-slice HASTE, radial thick-slab HASTE centered on the extrahepatic bile ducts. Intravenous secretin: Not requested. COMPARISON: [facility], CT, CT ABDOMEN PELVIS WO CON, 04/16/2025, 12:05. [facility], US, US ABDOMEN LIMITED, 04/16/2025, 12:45. FINDINGS: Image quality: Oajq-he-racbiwza motion artifact Lower chest: Mild lower lung opacities, better assessed on CT. Hiatal hernia partially seen Liver: Unremarkable Gallbladder and biliary system: Choledocholithiasis, with CBD measuring up to 1.2 cm. Stones are best seen on series 15. Partially seen distended gallbladder. Pancreas: No ductal dilation Spleen: Multiple small cysts. Adrenals: No discrete nodules Kidneys: Left parapelvic cysts. Vessels and lymph nodes: No enlarged lymph nodes by size criteria. No abdominal aortic aneurysm Bowel and peritoneum: No bowel obstruction. Colonic diverticula. No drainable ascites or abscess Body wall: Unremarkable Bones: No aggressive appearing osseous abnormality. Degenerative changes. IMPRESSION: Dilated CBD and choledocholithiasis. Distended gallbladder also present. Dictated by: Marcelo Hernandez M.D. on 04/16/2025 at 15:45 Approved by: Marcelo Hernandez M.D. on 04/16/2025 at 15:48
[2025-04-16 15:28] LABS: Ictotest Urine Positive (Negative)
[2025-04-16 15:29] LABS: Culture Indicated Urine Specimen Cultured
[2025-04-16] MEDS: PIPERACILLIN/TAZO 4.5 GM in SODIUM CHLORIDE 0.9% 100 ML IV (19:40)
--- NOTE | 2025-04-16 21:30 | PC.NURSE ---
Report given/care transferred to [facility] transport nurse
== END 2025-04-16 21:42 | disposition short-term general hospital (02) ==
PROVIDERS: Family Medicine; Emergency Provider Emergency Medicine; PCP Family Medicine
DX: K80.50 Calculus of bile duct without cholangitis or cholecystitis without obstruction (principal); R11.2 Nausea with vomiting, unspecified
CPT/HCPCS: 36415; 74176; 74181; 76705; 80053; 81003; 81015; 83690; 84484; 85025; 87086; 93005; 93010; 96361; 96365; 96375; 99284; J1171; J1885; J2272; J2405; J2543; J7050; J7120

== ENCOUNTER → 2025-04-30 08:26 | Outpatient (CLI) | payer OTHER, SELFPAY ==
[2025-04-30 10:13] LABS: Alanine Aminotransferase 39 IU/L (<50); Albumin 4.2 g/dL (3.5-5.0); Albumin Globulin Ratio 1.4 (1.0-2.8); Alkaline Phosphatase 102 U/L (38-126); Blood Urea Nitrogen 23 mg/dL (9-20); Calcium 9.9 mg/dL (8.4-10.2); Carbon Dioxide 26 mmol/L (22-32); Chloride 104 mmol/L (98-107); Estimated Glomerular Filt Rate > 60 mL/min (>60); Globulin 2.9 g/dL (1.7-4.1); Glucose 104 mg/dL (70-99); HEMOLYSIS < 15 (0-50); Potassium 4.4 mmol/L (3.4-5.1); Sodium 139 mmol/L (137-145); Total Protein 7.1 g/dL (6.3-8.2)
== END ==
PROVIDERS: PCP Family Medicine; Referring Provider Family Medicine; Visit Provider Nurse Practitioner Family
DX: K83.8 Other specified diseases of biliary tract (principal)
CPT/HCPCS: 36415; 80053

== ENCOUNTER → 2025-05-27 09:20 | Outpatient (CLI) | payer OTHER, SELFPAY ==
[2025-05-27 10:38] LABS: Alanine Aminotransferase 35 IU/L (<50); Albumin 4.3 g/dL (3.5-5.0); Albumin Globulin Ratio 1.5 (1.0-2.8); Alkaline Phosphatase 58 U/L (38-126); Blood Urea Nitrogen 20 mg/dL (9-20); Calcium 9.6 mg/dL (8.4-10.2); Carbon Dioxide 27 mmol/L (22-32); Chloride 106 mmol/L (98-107); Estimated Glomerular Filt Rate > 60 mL/min (>60); Globulin 2.8 g/dL (1.7-4.1); Glucose 107 mg/dL (70-99); HEMOLYSIS < 15 (0-50); Potassium 4.5 mmol/L (3.4-5.1); Sodium 143 mmol/L (137-145); Total Protein 7.1 g/dL (6.3-8.2)
== END ==
PROVIDERS: PCP Family Medicine; Referring Provider Family Medicine; Visit Provider Family Medicine
DX: K81.9 Cholecystitis, unspecified (principal); R79.89 Other specified abnormal findings of blood chemistry
CPT/HCPCS: 36415; 80053